=== PATIENT | female | born 1975 | race Caucasian/White ===

== ENCOUNTER 2016-05-24 08:42 | Emergency (ER) | payer OTHER, MEDICAID ==
[2016-05-24] MEDS ORDERED: DIAZEPAM 5 MG TABLET PO ONE (09:03)
[2016-05-24] MEDS ORDERED: KETOROLAC TROMETHAMINE 60 MG/2 ML SDV IM ONE (09:03)
[2016-05-24] MEDS ORDERED: OXYCODONE-ACETAMINOPHEN 5-325 MG TABLET PO ONE (09:03)
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
[2016-05-24 10:50] VITALS: BP 119/77
== END 2016-05-24 10:50 | disposition home or self-care (01) ==
LOC: ER 08:42
DX: M54.6 Pain in thoracic spine (principal); R06.7 Sneezing; F17.200 Nicotine dependence, unspecified, uncomplicated; G89.29 Other chronic pain; V09.20XS Pedestrian injured in traffic accident involving unspecified motor vehicles, sequela; Z79.899 Other long term (current) drug therapy; Z88.1 Allergy status to other antibiotic agents
CPT/HCPCS: 99283; 96372; J1885

== ENCOUNTER 2016-08-17 07:09 | Observation (INO) | payer OTHER, MEDICAID ==
[2016-08-10 11:18] LABS: ABSOLUTE BASOPHILS # (AUTO) 0.1 10^3/uL (0.0-0.2); ABSOLUTE EOSINOPHILS # (AUTO) 0.2 10^3/uL (0.0-0.6); ABSOLUTE LYMPHOCYTES (AUTO) 1.9 10^3/uL (0.5-4.7); ABSOLUTE MONOCYTES (AUTO) 0.6 10^3/uL (0.1-1.4); ABSOLUTE NEUT (AUTO) 2.9 10^3/uL (1.7-8.2); BASOPHILS % (AUTO) 1.3 % (0-2); EOSINOPHILS % (AUTO) 3.9 % (0-6); HEMOGLOBIN 13.4 g/dL (12.0-15.5); HGB HCT DIFFERENCE 1.2; LYMPHOCYTES % (AUTO) 32.9 % (13-45); MEAN CORPUSCULAR HEMOGLOBIN 31.9 pg (27.0-33.4); MEAN CORPUSCULAR HGB CONC 34.3 g/dL (32.0-36.0); MEAN CORPUSCULAR VOLUME 93 fl (80-97); MONOCYTES % (AUTO) 10.9 % (3-13); WHITE BLOOD COUNT 5.7 10^3/uL (4.0-10.5)
[2016-08-10 11:22] LABS: APPEARANCE,URINE CLOUDY; BILIRUBIN,URINE NEGATIVE (NEGATIVE); GLUCOSE, URINE NEGATIVE (NEGATIVE); KETONES,URINE NEGATIVE (NEGATIVE); LEUKOCYTE ESTERASE,URINE NEGATIVE (NEGATIVE); NITRITE,URINE NEGATIVE (NEGATIVE); PROTEIN,URINE 30 mg/dL (NEGATIVE); URINE SPECIFIC GRAVITY 1.011; UROBILINOGEN,URINE NEGATIVE mg/dL (<2.0)
[2016-08-10 11:44] LABS: ANION GAP 16 (5-19); BLOOD UREA NITROGEN 34 mg/dL (7-20); CALCIUM 9.6 mg/dL (8.4-10.2); CARBON DIOXIDE 24 mmol/L (22-30); CHLORIDE 102 mmol/L (98-107); GLUCOSE 85 mg/dL (75-110); SODIUM 141.5 mmol/L (137-145)
[2016-08-10 11:51] LABS: POTASSIUM 4.2 mmol/L (3.6-5.0)
--- NOTE | 2016-08-10 13:11 | EKG REPORT ---
SEVERITY:- NORMAL ECG - SINUS RHYTHM : Confirmed by: Medina Isaacs MD 10-Aug-2016 13:10:40
[~2016-08-17 07:09] MED LIST: CEFAZOLIN 2 GM/D5W RTU 2 GM/50 ML RTUPB IV PRN; LACTATED RINGERS 1000 ML IV PRN; LIDOCAINE 0.5% INJ-PF (5 MG/ML) 50 ML SDV SUBCUT PRN
[2016-08-17] MEDS ORDERED: FENTANYL CITRATE INJ/PF 250 MCG/5 ML AMPULE ONE ×2 (09:11)
[2016-08-17] MEDS ORDERED: PROPOFOL INJ 200 MG/20 ML VIAL IV ONE (09:12)
[2016-08-17] MEDS ORDERED: MIDAZOLAM 2 MG/2 ML INJ ONE (09:12)
[2016-08-17] MEDS ORDERED: ACETAMINOPHEN 100 ML IV ONE (09:12)
[2016-08-17] MEDS ORDERED: MORPHINE SULFATE 10 MG/ML INJ ONE ×2 (09:13→12:53)
[2016-08-17] MEDS ORDERED: THROMBIN (BOVINE) TOPICAL 20000 UNIT VIAL ONE (10:17)
[2016-08-17] MEDS ORDERED: FENTANYL CITRATE INJ/PF 100 MCG/2 ML AMPUL IV PRN ×3 (10:33)
[2016-08-17] MEDS ORDERED: PROMETHAZINE HCL INJ 25 MG/1 ML VIAL IV PRN ×2 (10:33)
[2016-08-17] MEDS ORDERED: MEPERIDINE HCL/PF INJ 25 MG/1 ML DISP.SYRIN IV PRN (10:33)
[2016-08-17] MEDS ORDERED: MORPHINE SULFATE 10 MG/ML INJ IV PRN (10:33)
[2016-08-17] MEDS ORDERED: DIPHENHYDRAMINE HCL 50 MG/ML VIAL IV PRN (10:33)
[2016-08-17] MEDS ORDERED: OXYCODONE-ACETAMINOPHEN 5-325 MG TABLET PO PRN ×2 (10:33)
[2016-08-17] MEDS ORDERED: BUPIVACAINE HCL 0.5 % INJ/PF 30 ML SDV ONE (11:55)
[2016-08-17] MEDS ORDERED: KETOROLAC TROMETHAMINE INJ/PF 30 MG/1 ML SDV IV PRN (12:51)
[2016-08-17] MEDS ORDERED: ONDANSETRON HCL INJ/PF 4 MG/2 ML SDV IV PRN (12:51)
--- NOTE | 2016-08-17 12:51 | PDOC DISCHARGE SUMMARY ---
Discharge Summary (SDC) - Discharge Final Diagnosis: Right Elbow Excision Heterotopic Ossification, Removal Hardware Date of Surgery: 08/17/16 Discharge Date: 08/17/16 Condition: Good Treatment or Instructions: Schedule Follow Up w/ Dr. Avery Clancy @ [facility] to be seen in 10-14 days or as scheduled [place]: [place]: [place]: Keep splint clean/dry/intact until occupational therapy Begin occupational therapy POD #2 Ice and elevate May begin finger range of motion attempting to make full fist. Stool softener of choice when on pain medication. Prescriptions: Indomethacin [Indocin 25 Mg Capsule] 25 mg PO TID #90 capsule Oxycodone HCl [Oxycontin Sr 10 mg Tablet] 10 mg PO Q12 PRN #20 tab.sr.12h PRN Reason: Oxycodone HCl/Acetaminophen [Percocet 7.5-325 Mg Tablet] 1 each PO Q6 PRN #45 tablet PRN Reason: Discharge Diet: As Tolerated Discharge Activity: No Lifting Over 10 Pounds, No Lifting/Push/Pulling Report the Following to Your Physician Immediately: Fever over 101 Degrees, Unusual Bleeding, Redness, Swelling, Warmth, Increased Soreness, Numbness, Tingling Sensation
--- NOTE | 2016-08-17 12:54 | Brief Operative Note ---
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
[2016-08-17] MEDS ORDERED: ONDANSETRON HCL INJ/PF 4 MG/2 ML SDV ONE ×2 (12:59→14:32)
[2016-08-17] MEDS ORDERED: LORAZEPAM INJ 2 MG/1 ML VIAL ONE (13:08)
[2016-08-17] MEDS: HYDROMORPHONE HCL INJ/PF 2 MG/ML AMPULE IV PRN ×4 (13:45→20:27)
[2016-08-17] MEDS ORDERED: LIDOCAINE 2% INJ-PF (20 MG/ML) 10 ML AMPUL ONE (14:32)
[2016-08-17] MEDS ORDERED: GLYCOPYRROLATE INJ 0.4 MG/2 ML VIAL ONE (14:32)
[2016-08-17] MEDS ORDERED: METOCLOPRAMIDE HCL INJ/PF 10 MG/2 ML SDV ONE (14:32)
[2016-08-17] MEDS ORDERED: SUCCINYLCHOLINE CHLORIDE INJ 200 MG/10 ML VIAL ONE (14:32)
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
[2016-08-17] MEDS: INDOMETHACIN 25 MG CAPSULE PO SCH (18:26)
[2016-08-17] MEDS ORDERED: RIVAROXABAN 10 MG TABLET PO SCH (22:00)
[2016-08-17] MEDS: ALPRAZOLAM 0.5 MG TABLET PO PRN (22:50)
[2016-08-17] MEDS: OXYCODONE-ACETAMINOPHEN 5-325 MG TABLET PO PRN (22:54)
[2016-08-17] MEDS ORDERED: RIVAROXABAN 10 MG TABLET ONE (23:00)
[2016-08-18] MEDS: HYDROMORPHONE HCL INJ/PF 2 MG/ML AMPULE IV PRN ×3 (00:57→06:19)
[2016-08-18] MEDS: OXYCODONE-ACETAMINOPHEN 5-325 MG TABLET PO PRN ×2 (04:44→11:33)
[2016-08-18] MEDS: ALPRAZOLAM 0.5 MG TABLET PO PRN (06:21)
[2016-08-18 08:29] VITALS: BP 135/75
[2016-08-18] MEDS ORDERED: OXYCODONE HCL SR 10 MG TABLET PO ONE (08:30)
[2016-08-18] MEDS: INDOMETHACIN 25 MG CAPSULE PO SCH (09:41)
== END 2016-08-18 13:20 | disposition home or self-care (01) ==
LOC: OROUT 07:09 → 2N 14:30 → OROUT 15:43
PROVIDERS: ADMIT Orthopaedic Surgery; ATTEND Orthopaedic Surgery
PROC: 0PBK0ZZ Excision of Right Ulna, Open Approach (ICD-10-PCS; 2016-08-17)
PROC: 0RPL04Z Removal of Internal Fixation Device from Right Elbow Joint, Open Approach (ICD-10-PCS; 2016-08-17)
PROC: 0PBH0ZZ Excision of Right Radius, Open Approach (ICD-10-PCS; principal; 2016-08-17 09:30)
DX: M89.8X2 Other specified disorders of bone, upper arm (principal); M24.521 Contracture, right elbow; M96.89 Other intraoperative and postprocedural complications and disorders of the musculoskeletal system; Y83.1 Surgical operation with implant of artificial internal device as the cause of abnormal reaction of the patient, or of later complication, without mention of misadventure at the time of the procedure
CPT/HCPCS: 93005; 36415; 85025; 81025; 80048; 81001; 88305 ×2; 88311; 71020; 73070; 93010; 24147; 20680; G0378 ×2; G0379; L3650; C1713 ×2; J2250; J3490 ×4; J3010; J1885; J2765; J2270; J1170 ×2; J2060; J0330; J2405; J7120; J2704; J0690; J0131; 01740

== ENCOUNTER 2016-08-18 17:19 | Emergency (ER) | payer OTHER, MEDICAID ==
--- NOTE | 2016-08-18 18:44 | ER Document Report ---
ED General - General Chief Complaint: Post Surgical Pain Stated Complaint: POST OP SWELLING Notes: The patient is a 41-year-old female who presents with increased pain at the site of her right forearm surgery completed yesterday by Dr. Glez. She said that she had a complex repair of her forearm and hardware removal. She is taking her pain medicine with mild relief of her symptoms. She denies numbness , tingling, fevers, redness, discharge out of the wound or any other pain. TRAVEL OUTSIDE OF THE [place] IN LAST 30 DAYS: No - Related Data Allergies/Adverse Reactions: sulfamethoxazole [From Janra] Allergy (Severe, Verified 08/18/16 17:35) Anaphylaxis trimethoprim [From Janra] Allergy (Severe, Verified 08/18/16 17:35) Anaphylaxis Past Medical History - General Information source: Patient - Social History Smoking Status: Unknown if Ever Smoked Family History: Reviewed & Not Pertinent - Past Medical History Cardiac Medical History: Denies: Hx Coronary Artery Disease, Hx Heart Attack, Hx Hypertension Pulmonary Medical History: Reports: Hx Pneumonia - 2016 Denies: Hx Asthma, Hx Bronchitis - Bronchitis once , Hx COPD Neurological Medical History: Denies: Hx Cerebrovascular Accident, Hx Seizures Renal/ Medical History: Denies: Hx Peritoneal Dialysis Musculoskeltal Medical History: Reports Hx Arthritis - Generalized Past Surgical History: Reports: Hx Abdominal Surgery, Hx Orthopedic Surgery - Immunizations Hx Diphtheria, Pertussis, Tetanus Vaccination: Yes Review of Systems - Review of Systems Notes: REVIEW OF SYSTEMS: CONSTITUTIONAL: -fevers, -chills EENT: -eye pain, -difficulty swallowing, -nasal congestion CARDIOVASCULAR:-chest pain, -syncope. RESPIRATORY: -cough, -SOB GASTROINTESTINAL: -abdominal pain, - nausea, -vomiting, -diarrhea GENITOURINARY: -dysuria, -hematuria MUSCULOSKELETAL: +right forearm pain, -back pain, -neck pain SKIN: -rash or skin lesions. HEMATOLOGIC: -easy bruising or bleeding. LYMPHATIC: -swollen, enlarged glands. NEUROLOGICAL: -altered mental status or loss of consciousness, -headache, - neurologic symptoms PSYCHIATRIC: -anxiety, -depression. ALL OTHER SYSTEMS REVIEWED AND NEGATIVE. Physical Exam - Vital signs Vitals: Temp Pulse Resp BP Pulse Ox 99.5 F 86 18 124/75 100 08/18/16 17:38 08/18/16 17:38 08/18/16 17:38 08/18/16 17:38 08/18/16 17:38 - Notes Notes: PHYSICAL EXAMINATION: GENERAL: Well-appearing, well-nourished and in no acute distress. HEAD: Atraumatic, normocephalic. EYES: Pupils equal round and reactive to light, extraocular movements intact, sclera anicteric, conjunctiva are normal. ENT: nares patent, oropharynx clear without exudates. Moist mucous membranes. NECK: Normal range of motion, supple without lymphadenopathy LUNGS: Breath sounds clear to auscultation bilaterally and equal. No wheezes rales or rhonchi. HEART: Regular rate and rhythm without murmurs ABDOMEN: Soft, nontender, normoactive bowel sounds. No guarding, no rebound. No masses appreciated. EXTREMITIES: Mild swelling over right upper forearm, surgical incision over right posterior elbow without discharge or surrounding erythema, normal range of motion, no pitting or edema. No cyanosis. Strong right radial and ulnar pulses, brisk capillary refill, no numbness or tingling. NEUROLOGICAL: Cranial nerves grossly intact. Normal speech, normal gait. Normal sensory, motor, and reflex exams. PSYCH: Normal mood, normal affect. Course - Re-evaluation Re-evalutation: After removal of splint applied by surgeon yesterday, patient's pain was relieved. Strong radial and ulnar pulses and brisk capillary refill. No numbness or tingling. No evidence of wound infection. Do not suspect compartment syndrome at this time with relief of pain after removal of the plaster. New posterior elbow splint applied by PCT and will have patient follow -up with Dr. Glez tomorrow in the office. Given precautions about compartment syndrome and patient understands. - Vital Signs Vital signs: Temp Pulse Resp BP Pulse Ox 98.2 F 98 18 107/75 100 08/18/16 19:30 08/18/16 19:30 08/18/16 19:30 08/18/16 19:30 08/18/16 19:30 Procedures - Immobilization Right Posterior Elbow Time completed: 19:28 Pre-Proc Neuro Vasc Exam: Normal Immobilizer type: Long arm posterior Performed by: PCT Post-Proc Neuro Vasc Exam: Normal Discharge - Discharge Clinical Impression: Pain following surgery or procedure Condition: Good Disposition: HOME, SELF-CARE Additional Instructions: Compartment Syndrome Cautions You have signs of swelling. Occasionally, swelling and internal bleeding becomes trapped within a "compartment" -- a muscle space inside the extremity enclosed by fibrous gonzalez. When this swelling creates enough pressure to interfere with circulation, it's called compartment syndrome. Surgery may even be needed to release the pressure. At this time, you do not have compartment syndrome. But there is a small chance that it could develop. Keep the extremity elevated and apply ice packs as directed. Symptoms of compartment syndrome require immediate medical attention. Return immediately if you develop significantly increased pain, numbness, inability to move fingers or toes, or dramatic paleness of the hand or foot. Referrals: DEANA GLEZ, [ACTIVE STAFF] - Follow up as needed
[2016-08-18 19:31] VITALS: BP 107/75
== END 2016-08-18 19:37 | disposition home or self-care (01) ==
LOC: ER 17:19
PROC: 2W38X1Z Immobilization of Right Upper Extremity using Splint (ICD-10-PCS; principal; 2016-08-18)
DX: G89.18 Other acute postprocedural pain (principal)
CPT/HCPCS: 99283

== ENCOUNTER 2016-10-19 08:22 | Emergency (ER) | payer OTHER, MEDICAID ==
[2016-10-19] MEDS ORDERED: MORPHINE SULFATE 10 MG/ML INJ IM ONE (09:12)
--- NOTE | 2016-10-19 09:45 | RADIOLOGY REPORT (SQ) ---
EXAM DESCRIPTION: HAND RIGHT 3 VIEWS COMPLETED DATE/TIME: 10/19/2016 9:33 am REASON FOR STUDY: hand pain COMPARISON: None. EXAM PARAMETERS: NUMBER OF VIEWS: Three views. TECHNIQUE: AP, lateral and oblique radiographic images acquired of the right hand. LIMITATIONS: None. FINDINGS: MINERALIZATION: Normal. BONES: No acute fracture or dislocation. No worrisome bone lesions. JOINTS: No effusions. SOFT TISSUES: No soft tissue swelling. No foreign body. OTHER: No other significant finding. IMPRESSION: NEGATIVE STUDY OF THE RIGHT HAND. NO RADIOGRAPHIC EVIDENCE OF ACUTE INJURY. TECHNICAL DOCUMENTATION: JOB ID: [id number] [employer]- All Rights Reserved
--- NOTE | 2016-10-19 10:06 | ER Document Report ---
ED General - General Chief Complaint: Hand Pain Stated Complaint: RIGHT HAND PAIN Time Seen by Provider: 10/19/16 08:35 Mode of Arrival: Ambulatory Information source: Patient Notes: 41-year-old female history of recent elbow surgery presents with complaints of right hand pain after she squeezed a [place]. Patient felt a cracking sensation in the hand states she is having pain now. Patient denies any other concerns TRAVEL OUTSIDE OF THE [place] IN LAST 30 DAYS: No - HPI Onset: Just prior to arrival Onset/Duration: Sudden Quality of pain: Achy Severity: Mild Pain Level: 1 Associated symptoms: Body/muscle aches Exacerbated by: Movement Relieved by: Denies Similar symptoms previously: Yes Recently seen / treated by doctor: Yes - Related Data Allergies/Adverse Reactions: sulfamethoxazole [From Septra] Allergy (Severe, Verified 10/19/16 08:26) Anaphylaxis trimethoprim [From Septra] Allergy (Severe, Verified 10/19/16 08:26) Anaphylaxis Past Medical History - Social History Smoking Status: Current Every Day Smoker Cigarette use (# per day): Yes Chew tobacco use (# tins/day): No Smoking Education Provided: No Frequency of alcohol use: Social Drug Abuse: None Family History: Reviewed & Not Pertinent Patient has suicidal ideation: No Patient has homicidal ideation: No - Past Medical History Cardiac Medical History: Denies: Hx Coronary Artery Disease, Hx Heart Attack, Hx Hypertension Pulmonary Medical History: Reports: Hx Pneumonia - 2016 Denies: Hx Asthma, Hx Bronchitis - Bronchitis once , Hx COPD Neurological Medical History: Denies: Hx Cerebrovascular Accident, Hx Seizures Renal/ Medical History: Denies: Hx Peritoneal Dialysis Musculoskeltal Medical History: Reports Hx Arthritis - Generalized Past Surgical History: Reports: Hx Abdominal Surgery, Hx Orthopedic Surgery - Immunizations Hx Diphtheria, Pertussis, Tetanus Vaccination: Yes Review of Systems - Review of Systems Notes: REVIEW OF SYSTEMS: CONSTITUTIONAL : Denies fever, chills, or sweats. Denies recent illness. EENT: Denies eye, ear, throat, or mouth pain or symptoms. Denies nasal or sinus congestion or discharge. Denies throat, tongue, or mouth swelling or difficulty swallowing. CARDIOVASCULAR: Denies chest pain. Denies palpitations or racing or irregular heart beat. Denies ankle edema. RESPIRATORY: Denies cough, cold, or chest congestion. Denies shortness of breath, difficulty breathing, or wheezing. GASTROINTESTINAL: Denies abdominal pain or distention. Denies nausea, vomiting , or diarrhea. Denies blood in vomitus, stools, or per rectum. Denies black, tarry stools. Denies constipation. GENITOURINARY: Denies difficulty urinating, painful urination, burning, frequency, blood in urine, or discharge. FEMALE GENITOURINARY: Denies vaginal bleeding, heavy or abnormal periods, irregular periods. Denies vaginal discharge or odor. MUSCULOSKELETAL:admits to right hand pain SKIN: Denies rash, lesions or sores. HEMATOLOGIC : Denies easy bruising or bleeding. LYMPHATIC: Denies swollen, enlarged glands. NEUROLOGICAL: Denies confusion or altered mental status. Denies passing out or loss of consciousness. Denies dizziness or lightheadedness. Denies headache. Denies weakness or paralysis or loss of use of either side. Denies problems with gait or speech. Denies sensory loss, numbness, or tingling. Denies seizures. PHYSICAL EXAMINATION: GENERAL: Well-appearing, well-nourished and in no acute distress. HEAD: Atraumatic, normocephalic. EYES: Pupils equal round and reactive to light, extraocular movements intact, conjunctiva are normal. ENT: Nares patent, oropharynx clear without exudates. Moist mucous membranes. NECK: Normal range of motion, supple without lymphadenopathy LUNGS: Breath sounds clear to auscultation bilaterally and equal. No wheezes rales or rhonchi. HEART: Regular rate and rhythm without murmurs ABDOMEN: Soft, nontender, nondistended abdomen. No guarding, no rebound. No masses appreciated. Female : deferred Musculoskeletal: decreased range of motion of the right wrist during supination , tender to palpation , pt able ot move digits with no difficulty NEUROLOGICAL: Cranial nerves grossly intact. Normal speech, normal gait. Normal sensory, motor exams PSYCH: Normal mood, normal affect. SKIN: Warm, Dry, normal turgor, no rashes or lesions noted. ALL OTHER SYSTEMS REVIEWED AND NEGATIVE. Dictation was performed using [employer] recognition software Physical Exam - Vital signs Vitals: Temp Pulse Resp BP Pulse Ox 97.8 F 94 18 113/87 H 99 10/19/16 08:26 10/19/16 08:26 10/19/16 08:26 10/19/16 08:26 10/19/16 08:26 Course - Re-evaluation Re-evalutation: 10/19/16 10:04 Physical examination except for limited range of motion of supination is normal , x-ray was negative. Patient has an appointment with her orthopedic physician tomorrow After performing a Medical Screening Examination, I estimate there is LOW risk for INTRACRANIAL HEMORRHAGE, UNSTABLE SPINE FRACTURE, CENTRAL CORD SYNDROME, CAUDA EQUINA, THORACIC AORTIC DISSECTION, PNEUMOTHORAX, PERFORATED BOWEL, RUPTURED ABDOMINAL AORTIC ANEURYSM, ACUTE TENDON RUPTURE, COMPARTMENT SYNDROME, or OPEN FRACTURE, thus I consider the discharge disposition reasonable. Also, there is no evidence or peritonitis, sepsis, or toxicity. I have reevaluated this patient multiple times and no significant life threatening changes are noted. The patient and I have discussed the diagnosis and risks, and we agree with discharging home to follow-up with their primary doctor with the understanding that symptoms and presentations can change. We also discussed returning to the Emergency Department immediately if new or worsening symptoms occur. We have discussed the symptoms which are most concerning (e.g., bloody stool, fever, changing or worsening pain, vomiting) that necessitate immediate return. - Vital Signs Vital signs: Temp Pulse Resp BP Pulse Ox 97.9 F 76 16 115/69 99 10/19/16 08:51 10/19/16 08:51 10/19/16 08:51 10/19/16 08:51 10/19/16 08:51 - Diagnostic Test Radiology reviewed: Image reviewed, Reports reviewed - No acute abnormality report given to patient Discharge - Discharge Clinical Impression: Right wrist pain Condition: Stable Disposition: HOME, SELF-CARE Instructions: Contusion ([facility]) Referrals: MEREDITH EDWARDS MD [Primary Care Provider] - Follow up as needed DEANA GLEZ DO [ACTIVE STAFF] - Follow up tomorrow
[2016-10-19 10:34] VITALS: BP 103/62
== END 2016-10-19 10:54 | disposition home or self-care (01) ==
LOC: ER 08:22
DX: M25.531 Pain in right wrist (principal); M79.641 Pain in right hand; M79.1 Myalgia; F17.210 Nicotine dependence, cigarettes, uncomplicated; Z88.3 Allergy status to other anti-infective agents
CPT/HCPCS: 99283; 96372; 73130; J2270

== ENCOUNTER 2017-05-14 12:02 | Emergency (ER) | payer OTHER, MEDICAID ==
[2017-05-14 12:13] VITALS: BP 106/53
--- NOTE | 2017-05-14 13:39 | ER Document Report ---
ED General - General Chief Complaint: Fall Injury Stated Complaint: FALL/LEFT SHOULDER Time Seen by Provider: 05/14/17 12:28 Mode of Arrival: Ambulatory Information source: Patient, [facility] Records TRAVEL OUTSIDE OF THE [place] IN LAST 30 DAYS: No - Related Data Allergies/Adverse Reactions: sulfamethoxazole [From Septra] Allergy (Severe, Verified 05/14/17 12:03) Anaphylaxis trimethoprim [From Septra] Allergy (Severe, Verified 05/14/17 12:03) Anaphylaxis Past Medical History - Social History Smoking Status: Current Every Day Smoker Chew tobacco use (# tins/day): No Frequency of alcohol use: Heavy Drug Abuse: None Family History: Reviewed & Not Pertinent Patient has suicidal ideation: No Patient has homicidal ideation: No - Past Medical History Cardiac Medical History: Denies: Hx Coronary Artery Disease, Hx Heart Attack, Hx Hypertension Pulmonary Medical History: Reports: Hx Pneumonia - 2016 Denies: Hx Asthma, Hx COPD Comment Only: Hx Bronchitis - Bronchitis once Neurological Medical History: Denies: Hx Cerebrovascular Accident, Hx Seizures Renal/ Medical History: Denies: Hx Peritoneal Dialysis Musculoskeltal Medical History: Reports Hx Arthritis - Generalized Past Surgical History: Reports: Hx Abdominal Surgery, Hx Orthopedic Surgery - back and neck - Immunizations Hx Diphtheria, Pertussis, Tetanus Vaccination: Yes Physical Exam - Vital signs Vitals: Temp Pulse Resp BP Pulse Ox 97.5 F 77 12 106/53 L 100 05/14/17 12:11 05/14/17 12:11 05/14/17 12:11 05/14/17 12:11 05/14/17 12:11 Course - Re-evaluation Re-evalutation: 05/14/17 14:39 Patient left the pit waiting to go to the restroom and never returned. One hour after I spoke with and came up with the discharge plan, she can still not be found, so we assume she eloped. - Vital Signs Vital signs: Temp Pulse Resp BP Pulse Ox 97.5 F 77 12 106/53 L 100 05/14/17 12:11 05/14/17 12:11 05/14/17 12:11 05/14/17 12:11 05/14/17 12:11 - Consults Dr. Prater Time consulted: 13:35 Consulted provider: follow-up in office - Call Teddy morning to be worked in for Tuesday or Tuesday Discharge - Discharge Clinical Impression: Muscle strain of left scapular region Qualifiers: Encounter type: initial encounter Qualified Code(s): S46.912A - Strain of unspecified muscle, fascia and tendon at shoulder and upper arm level, left arm , initial encounter Condition: Stable Disposition: ELOPED Additional Instructions: Continue your regular medications. Try the hot and cold packets. Call [facility] for surgery Tuesday to try to get worked in for Tuesday or Tuesday. Their office schedule may be quite tight due to being closed on , Tuesday, due to weather, and Tuesday, Tuesday for the weekend. RETURN TO THE EMERGENCY ROOM IF ANY NEW OR WORSENING SYMPTOMS. Referrals: [facility] [Provider Group] - 05/16/17 (Call Tuesday for an appointment on Tuesday or Tuesday.)
== END 2017-05-14 12:45 | disposition left against medical advice (07) ==
LOC: ER 12:02
DX: S46.912A Strain of unspecified muscle, fascia and tendon at shoulder and upper arm level, left arm, initial encounter (principal); W00.0XXA Fall on same level due to ice and snow, initial encounter; F17.200 Nicotine dependence, unspecified, uncomplicated; Z88.1 Allergy status to other antibiotic agents
CPT/HCPCS: 99281

== ENCOUNTER → 2017-06-16 | Outpatient (CLI) | payer OTHER, MEDICAID ==
--- NOTE | 2017-06-16 11:41 | RADIOLOGY REPORT (SQ) ---
EXAM DESCRIPTION: MRI LUMBAR SPINE WITHOUT COMPLETED DATE/TIME: 06/16/2017 11:28 am REASON FOR STUDY: SPINAL INJURY (S34.139A) N39.498 OTHER SPECIFIED URINARY INCONTINENCE S34.139A U NSPECIFIED INJURY TO SACRAL SPINAL CORD, INITIAL E COMPARISON: MRI pelvis without contrast 06/16/2017 MRI thoracic spine without contrast 06/16/2017 TECHNIQUE: Sagittal and Axial imaging includes T1, T2, STIR and gradient echo sequences. Coronal T2/ HASTE imaging. LIMITATIONS: None. FINDINGS: VISUALIZED UPPER ABDOMEN: Cortical thinning with parenchymal scarring left lower pole kidn ey. SEGMENTATION: No transitional anatomy. The lowest well-developed disc space is labeled L5-S1. ALIGNMENT: Anatomic. VERTEBRAE: Intact. BONE MARROW: Normal. No marrow replacement or reactive changes. DISC SIGNAL: Decreased T2 weighted intervertebral disc signal at L4-5 and L5-S1 POSTERIOR ELEMENTS: Generally intact. No pars defect evident. HARDWARE: None in the spine. CORD AND CONUS: There is a syrinx involving the distal thoracic cord extending from the upper edge of the field of view T10-11 level down to the mid L1 level. Conus is at the mid L2 vertebral body leve l. SOFT TISSUES: No aortic aneurysm seen. No bulky retroperitoneal adenopathy or mass. No paraspinal mas s or fluid. T11-12: Very mild bilateral facet hypertrophy. No central or foraminal encroachment. T12-L1: Unremarkable L1-L2: Unremarkable L2-L3: Unremarkable L3-L4: Minimal posterior disc bulging, mild bilateral facet hypertrophy. No central or foraminal enc roachment. L4-L5: Mild posterior disc bulging with left foraminal region annular tear, best shown on axial T2 i mage 25 and sagittal T2 image 11. Mild bilateral facet and ligament hypertrophy. No significant carolyn tral canal stenosis. Mild bilateral inferior foraminal narrowing without exiting L4 nerve root impin gement. L5-S1: Mild bilateral facet hypertrophy. No central or foraminal stenosis. SACRUM: Visualized upper sacrum intact. OTHER: No other significant findings. IMPRESSION: Distal thoracic cord syrinx at the upper edge of the field of view. Small left foraminal annular tear at the L4-5 level. No exiting left L4 nerve root impingement. TECHNICAL DOCUMENTATION: JOB ID: [id number]- All Rights Reserved
--- NOTE | 2017-06-16 11:49 | RADIOLOGY REPORT (SQ) ---
EXAM DESCRIPTION: MRI THORACIC SPINE WITHOUT COMPLETED DATE/TIME: 06/16/2017 11:29 am REASON FOR STUDY: SPINAL INJURY (S34.139A) N39.498 OTHER SPECIFIED URINARY INCONTINENCE S34.139A U NSPECIFIED INJURY TO SACRAL SPINAL CORD, INITIAL E COMPARISON: MRI lumbar spine same date No prior thoracic spine imaging available TECHNIQUE: Sagittal and Axial imaging includes T1, T2, STIR and gradient echo sequences. LIMITATIONS: None. FINDINGS: LOCALIZER: No worrisome findings. ALIGNMENT: Normal. VERTEBRAE: Intact. BONE MARROW: Normal. No marrow replacement or reactive changes. HARDWARE: Bilateral transpedicular screws with dorsal fixation plates from T3 through T6. CORD: The lower cervical cord at C7, upper thoracic spinal cord at T1 and T2 is grossly normal. From the T2-3 disc level through the T6-7 disc level, there is a irregularly-shaped central cord syri nx with expansion of the cord and thinning of the spinal cord parenchyma around the periphery of the syrinx. From the T6-7 level down to the T12-L1 level, an irregularly-shaped central cord syrinx is present wi th thinning of the spinal cord parenchyma or around the periphery of the cyst. Comparison with any prior outside imaging is recommended, to evaluate for change in craniocaudad exte nt of the syrinx over time. SOFT TISSUES: No soft tissue masses. THORACIC DISCS T1-T12: No significant spinal stenosis or exit foraminal stenosis. LOWER CERVICAL: Incompletely imaged. No significant spinal stenosis or exit foraminal stenosis. UPPER LUMBAR: Incompletely imaged. No significant spinal stenosis or exit foraminal stenosis. OTHER: No other significant finding. 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 There are no prior films available for comparison. Recommend comparison of the current study to any old outside prior s tudies to determine if there has been craniocaudad extension of the syrinx over time. No high-grade central or foraminal encroachment. TECHNICAL DOCUMENTATION: JOB ID: [id number] [employer]- All Rights Reserved
--- NOTE | 2017-06-16 12:00 | RADIOLOGY REPORT (SQ) ---
EXAM DESCRIPTION: MRI PELVIS WITHOUT COMPLETED DATE/TIME: 06/16/2017 11:29 am REASON FOR STUDY: INCONTINENCE (N39.498) N39.498 OTHER SPECIFIED URINARY INCONTINENCE S34.139A UNS PECIFIED INJURY TO SACRAL SPINAL CORD, INITIAL E COMPARISON: None. TECHNIQUE: Multiplanar multisequence imaging performed without contrast including axial, sagittal an d coronal T2, axial T1, sagittal inversion recovery. LIMITATIONS: None. FINDINGS: BLADDER AND URETHRA: No focal bladder wall thickening or nodularity. Smooth mucosa. The urethra has smooth contour with no focal asymmetry. No focal lesions. PELVIC SOFT TISSUES: Normal. No masses. UTERUS: Normal size. 1.5 cm ventral uterine body fibroid, 1.4 cm dorsal uterine body fibroid. Junct ional zone normal. RIGHT OVARY: Normal size. No masses. LEFT OVARY: Normal size. No masses. FREE FLUID: None. PELVIC SKELETAL STRUCTURES: No abnormal marrow signal. EXTRA PELVIS SOFT TISSUES: No masses. OTHER: No other significant finding. IMPRESSION: NORMAL FEMALE PELVIC MRI WITHOUT CONTRAST. TECHNICAL DOCUMENTATION: JOB ID: [id number]- All Rights Reserved
== END ==
LOC: RAD 09:49
PROVIDERS: ATTEND Student in an Organized Health Care Education/Training Program
DX: S34.139A Unspecified injury to sacral spinal cord, initial encounter (principal); X58.XXXA Exposure to other specified factors, initial encounter; N39.498 Other specified urinary incontinence
CPT/HCPCS: 72146; 72148; 72195

== ENCOUNTER 2017-06-27 11:40 | Emergency (ER) | payer OTHER, MEDICAID ==
[2017-06-27] MEDS ORDERED: HYDROMORPHONE HCL INJ/PF 2 MG/ML AMPULE IV ONE ×2 (13:09→14:15)
--- NOTE | 2017-06-27 16:01 | RADIOLOGY REPORT (SQ) ---
EXAM DESCRIPTION: MRI THORACIC SPINE COMBO; MRI LUMBAR SPINE COMBO COMPLETED DATE/TIME: 06/27/2017 3:10 pm REASON FOR STUDY: stool incontinence; incontinence/hx syrinx COMPARISON: 06/16/2017 MRI thoracic spine, lumbar spine, and pelvis TECHNIQUE: Sagittal imaging includes T1, T2, and T1 post gadolinium sequences of the thoracic and l umbar spine. CONTRAST TYPE AND DOSE: 15 mL Multihance. RENAL FUNCTION: None required. The patient is less than 50 years old. LIMITATIONS: None. FINDINGS: MRI of the thoracic and lumbar spine was performed and compared to exams from 06/16/2017. Constance yates has a syrinx with worsening bowel and bladder incontinence and difficulty walking. Again, the patient has bilateral transpedicular screws from T3 through T6. This causes ferromagnetic artifact in obscures fine detail of the upper thoracic cord in this area. A syrinx is identified from the T3 level through the T12-L1 level. Enlargement of the cervical cord from a fluid-filled central fluid collection is present. There is no abnormal contrast enhancement. No thoracic or lumbar disc protrusion/herniation with cord impingement. There is mild degenerative disc change and facet arthropathy at L4-5 and L5-S1 without high-grade caorlyn tral or foraminal encroachment. Aside from the upper thoracic spine obscured by hardware, there is normal marrow signal throughout th e visualized thoracic and lumbar vertebral bodies. The lumbosacral spinal canal is patent. No abnormal conus or lumbar nerve root enhancement. Paraspinal soft tissues are unremarkable IMPRESSION: Thoracic syrinx from C3 through the T12-L1 level. No abnormal thoracic cord or conus en hancement. No lumbar nerve root abnormal enhancement. TECHNICAL DOCUMENTATION: JOB ID: [id number] [employer]- All Rights Reserved
--- NOTE | 2017-06-27 16:01 | RADIOLOGY REPORT (SQ) ---
EXAM DESCRIPTION: MRI THORACIC SPINE COMBO; MRI LUMBAR SPINE COMBO COMPLETED DATE/TIME: 06/27/2017 3:10 pm REASON FOR STUDY: stool incontinence; incontinence/hx syrinx COMPARISON: 06/16/2017 MRI thoracic spine, lumbar spine, and pelvis TECHNIQUE: Sagittal imaging includes T1, T2, and T1 post gadolinium sequences of the thoracic and l umbar spine. CONTRAST TYPE AND DOSE: 15 mL Multihance. RENAL FUNCTION: None required. The patient is less than 50 years old. LIMITATIONS: None. FINDINGS: MRI of the thoracic and lumbar spine was performed and compared to exams from 06/16/2017. Constance yates has a syrinx with worsening bowel and bladder incontinence and difficulty walking. Again, the patient has bilateral transpedicular screws from T3 through T6. This causes ferromagnetic artifact in obscures fine detail of the upper thoracic cord in this area. A syrinx is identified from the T3 level through the T12-L1 level. Enlargement of the cervical cord from a fluid-filled central fluid collection is present. There is no abnormal contrast enhancement. No thoracic or lumbar disc protrusion/herniation with cord impingement. There is mild degenerative disc change and facet arthropathy at L4-5 and L5-S1 without high-grade carolyn tral or foraminal encroachment. Aside from the upper thoracic spine obscured by hardware, there is normal marrow signal throughout th e visualized thoracic and lumbar vertebral bodies. The lumbosacral spinal canal is patent. No abnormal conus or lumbar nerve root enhancement. Paraspinal soft tissues are unremarkable IMPRESSION: Thoracic syrinx from C3 through the T12-L1 level. No abnormal thoracic cord or conus en hancement. No lumbar nerve root abnormal enhancement. TECHNICAL DOCUMENTATION: JOB ID: [id number] [employer]- All Rights Reserved
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
[2017-06-27 16:31] VITALS: BP 130/75
== END 2017-06-27 16:29 | disposition home or self-care (01) ==
LOC: ER 11:40
DX: G95.0 Syringomyelia and syringobulbia (principal); R19.5 Other fecal abnormalities; M54.9 Dorsalgia, unspecified; M79.1 Myalgia; Z98.890 Other specified postprocedural states; F17.210 Nicotine dependence, cigarettes, uncomplicated
CPT/HCPCS: 96376; 99284; 96374; 72157; 72158; A9577; J1170

== ENCOUNTER 2018-02-01 12:25 | Emergency (ER) | payer MEDICAID, OTHER ==
[2018-02-01 13:32] LABS: APPEARANCE,URINE CLOUDY; BILIRUBIN,URINE NEGATIVE (NEGATIVE); COLOR,URINE YELLOW; GLUCOSE, URINE NEGATIVE (NEGATIVE); KETONES,URINE NEGATIVE (NEGATIVE); LEUKOCYTE ESTERASE,URINE LARGE (NEGATIVE); NITRITE,URINE NEGATIVE (NEGATIVE); PROTEIN,URINE NEGATIVE (NEGATIVE); URINE SPECIFIC GRAVITY 1.006; UROBILINOGEN,URINE NEGATIVE mg/dL (<2.0)
[2018-02-01 13:57] VITALS: BP 116/72
[2018-02-01] MEDS ORDERED: CEFTRIAXONE 1 GM/D5W RTU 1 GM/50 ML RTUPB IV ONE (14:00)
[2018-02-01] MEDS ORDERED: CEFTRIAXONE SODIUM 1,000 MG in NORMAL SALINE 50 ML IV ONE (14:30)
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
== END 2018-02-01 16:27 | disposition home or self-care (01) ==
LOC: ER 12:25
DX: N39.0 Urinary tract infection, site not specified (principal); R10.2 Pelvic and perineal pain; M54.9 Dorsalgia, unspecified; E66.9 Obesity, unspecified; F17.210 Nicotine dependence, cigarettes, uncomplicated; Z88.2 Allergy status to sulfonamides
CPT/HCPCS: 99283; 96365; 87040; 87086; 87088; 81001; 87186; J0696

== ENCOUNTER 2018-02-08 09:00 | Emergency (ER) | payer OTHER ==
[2018-02-08 10:12] LABS: BILIRUBIN,URINE NEGATIVE (NEGATIVE); COLOR,URINE YELLOW; GLUCOSE, URINE NEGATIVE (NEGATIVE); KETONES,URINE NEGATIVE (NEGATIVE); LEUKOCYTE ESTERASE,URINE NEGATIVE (NEGATIVE); NITRITE,URINE NEGATIVE (NEGATIVE); PROTEIN,URINE NEGATIVE (NEGATIVE); URINE SPECIFIC GRAVITY 1.018; UROBILINOGEN,URINE NEGATIVE mg/dL (<2.0)
[2018-02-08 10:14] LABS: APPEARANCE,URINE SLIGHTLY HAZY
--- NOTE | 2018-02-08 11:02 | ER Document Report ---
ED General - General Chief Complaint: Urinary Problem Stated Complaint: URINARY PROBLEM Time Seen by Provider: 02/08/18 10:38 Notes: Patient presents with concern of burning with urination and bilateral flank discomfort. Patient was here on the for dysuria found to have urinary tract infection but is Cipro. Patient states she has taken all of her medications continues to have dysuria but no fevers or chills. Urine rechecked in the emergency department shows clearance of urinary tract infection. Patient states that she continues to have of bilateral flank pain has a history of back pain but states that she has tingling and pain in her back that is different than normal. She denies any vaginal discharge or concerns of vaginal infection TRAVEL OUTSIDE OF THE [place] IN LAST 30 DAYS: No - Related Data Allergies/Adverse Reactions: sulfamethoxazole [From Septra] Allergy (Severe, Verified 02/08/18 09:01) Anaphylaxis trimethoprim [From Septra] Allergy (Severe, Verified 02/08/18 09:01) Anaphylaxis Past Medical History - Social History Smoking Status: Current Every Day Smoker Frequency of alcohol use: Social Drug Abuse: None Family History: Reviewed & Not Pertinent Patient has suicidal ideation: No Patient has homicidal ideation: No - Past Medical History Cardiac Medical History: Denies: Hx Coronary Artery Disease, Hx Heart Attack, Hx Hypertension Pulmonary Medical History: Reports: Hx Pneumonia - 2016 Denies: Hx Asthma, Hx COPD Comment Only: Hx Bronchitis - Bronchitis once Neurological Medical History: Denies: Hx Cerebrovascular Accident, Hx Seizures Renal/ Medical History: Denies: Hx Peritoneal Dialysis Musculoskeletal Medical History: Reports Hx Arthritis - Generalized Past Surgical History: Reports: Hx Abdominal Surgery, Hx Orthopedic Surgery - back and neck, shunt in spine - Immunizations Hx Diphtheria, Pertussis, Tetanus Vaccination: Yes Review of Systems - Review of Systems Constitutional: No symptoms reported EENT: No symptoms reported Cardiovascular: No symptoms reported Respiratory: No symptoms reported Gastrointestinal: No symptoms reported Genitourinary: Dysuria Female Genitourinary: No symptoms reported Musculoskeletal: Back pain Skin: No symptoms reported Hematologic/Lymphatic: No symptoms reported Neurological/Psychological: No symptoms reported Physical Exam - Vital signs Vitals: Temp Pulse Resp BP Pulse Ox 98.8 F 55 L 16 100/62 100 02/08/18 09:05 02/08/18 09:05 02/08/18 09:05 02/08/18 09:05 02/08/18 09:05 - General General appearance: Appears well, Alert - Respiratory Respiratory status: No respiratory distress - Cardiovascular Rhythm: Regular Heart sounds: Normal auscultation Murmur: No - Abdominal Inspection: Normal Distension: No distension Bowel sounds: Normal - Back Back: Normal. No: CVA tenderness, Vertebra tenderness Course - Re-evaluation Re-evalutation: 02/08/18 11:03 Patient well-appearing in no acute distress urinary tract infection is cleared on urinalysis in the emergency department shows that Cipro is sensitive to the bacteria E. coli she grew. Patient does not have any nausea vomiting abdominal pain or diarrhea. She has no signs of shingles or rash on her back. her back exam was unremarkable no CVA tenderness. Upon telling her that her urinary tract infection cleared she states that she is happy to hear this news and just wanted to get checked and wants to go home at this time. She does have mildly dry oral mucous membranes. Her symptoms could be sequela of having infection / inflammatory changes that are resolving . I also stated that she should drink plenty of water at least 5-6 glasses of water a day to see if this helps with her burning with urination and she did show signs of mildly dry oral mucous membranes. She is to have medical f/u if symptoms are not improving in the next several days. Patient understands and agrees to this plan - Vital Signs Vital signs: Temp Pulse Resp BP Pulse Ox 98.8 F 55 L 16 100/62 100 02/08/18 09:05 02/08/18 09:05 02/08/18 09:05 02/08/18 09:05 02/08/18 09:05 Discharge - Discharge Clinical Impression: Dysuria Back pain Qualifiers: Back pain location: low back pain Chronicity: unspecified Back pain laterality : bilateral Sciatica presence: without sciatica Qualified Code(s): M54.5 - Low back pain Condition: Good Disposition: HOME, SELF-CARE Additional Instructions: Please drink 5-6 glasses of water a day to see if this helps improve your symptoms. If you develop any fevers nausea vomiting or worsening symptoms please seek medical reevaluation but today you show no signs of urinary tract infection. Referrals: ORAL ANDREWS, [Primary Care Provider] - Follow up as needed
[2018-02-08 11:37] VITALS: BP 108/65
== END 2018-02-08 11:37 | disposition home or self-care (01) ==
LOC: ER 09:00
DX: R30.0 Dysuria (principal); M54.5 Low back pain; R10.9 Unspecified abdominal pain; R20.2 Paresthesia of skin; F17.200 Nicotine dependence, unspecified, uncomplicated; Z87.440 Personal history of urinary (tract) infections; Z88.1 Allergy status to other antibiotic agents
CPT/HCPCS: 81001; 81025; 99283